=== PATIENT | male | born 1950 | race Caucasian/White ===

== ENCOUNTER 2016-11-09 12:37 | Inpatient (IN) | payer OTHER ==
[~2016-11-09] VITALS: Ht 167.6 cm; Wt 75.7 kg
[~2016-11-09 12:37] MED LIST: BACO TOP; COZ50 PO; DIT5 PO; FENOGLIDE40 MG PO; GLU850 PO; HIBICLENS118 ML TOP; HUMALOG100 U/ML SC; HUMI SQ; LEVEMIR100 U/M1 SC; NEU100 PO; NOR5 PO; OMEPRAZOLE DR20 M1 PO; ROBITUSSIN COU118 ML PO; ZOCOR40 MG PO; [UNRECOGNIZED DRUG - CODE] PO
[2016-11-09 15:47] LABS: BASOPHIL % 0.6 % (0-2); PLATELET COUNT 333 x10^3mcL (130-400); RED CELL DISTRIBUTION WIDTH 13.1 % (11.5-14.5)
[2016-11-09 16:27] LABS: CARBON DIOXIDE 22.8 mmol/L (21-32); POTASSIUM SERUM 4.7 mmol/L (3.5-5.1)
[2016-11-09 16:31] LABS: BILIRUBIN TOTAL 0.2 mg/dL (0.20-1.00); TOTAL PROTEIN, SERUM 7.2 g/dL (6.4-8.2)
[2016-11-09 16:37] LABS: ALBUMIN 2.5 g/dL (3.4-5.0)
[2016-11-09 18:06] LABS: FREE T4 1.04 ng/dL (0.76-1.46); FREE THYROXINE INDEX 1.8 ug/dL (1.4-4.5); T4(THYROXINE) 5.4 ug/dL (4.7-13.3)
[2016-11-09 18:12] VITALS: BP 190/119
[2016-11-09 18:37] LABS: CHOLESTEROL/HDL RATIO 3.7; T3 TOTAL 1.07 ng/mL
[2016-11-09 22:02] VITALS: BP 105/115; BP 205/115
[2016-11-09 23:17] LABS: UA SPECIFIC GRAVITY 1.015 (1.005-1.035); microscopic required? YES; urine erythrocyte 1+ (NEGATIVE)
[2016-11-09 23:46] LABS: AMPHETAMINE QUAL UR NONE DETECTED (NEG <=1000)
[2016-11-10] VITALS (7 sets, daily range): BP systolic 116–175; BP diastolic 63–105; Ht 167.6 cm; Wt 75.7 kg
[2016-11-10 06:31] LABS: BASOPHIL % 1.6 % (0-2); PLATELET COUNT 297 x10^3mcL (130-400); RED CELL DISTRIBUTION WIDTH 12.6 % (11.5-14.5)
[2016-11-10 06:47] LABS: CALCIUM 7.7 mg/dL (8.5-10.1); CARBON DIOXIDE 24.6 mmol/L (21-32); CREATININE SERUM 1.9 mg/dL (0.7-1.3); MAGNESIUM 1.8 mg/dL (1.8-2.4); PHOSPHOROUS 4.2 mg/dL (2.5-4.9); POTASSIUM SERUM 4.2 mmol/L (3.5-5.1)
[2016-11-11 06:05] LABS: BASOPHIL % 0.7 % (0-2); PLATELET COUNT 268 x10^3mcL (130-400); RED CELL DISTRIBUTION WIDTH 13.5 % (11.5-14.5)
[2016-11-11 06:30] VITALS: BP 149/88
[2016-11-11 06:32] LABS: CALCIUM 7.2 mg/dL (8.5-10.1); CARBON DIOXIDE 22.9 mmol/L (21-32); MAGNESIUM 1.8 mg/dL (1.8-2.4); PHOSPHOROUS 4.2 mg/dL (2.5-4.9); POTASSIUM SERUM 4.7 mmol/L (3.5-5.1)
[2016-11-11 09:20] VITALS: BP 147/75
[2016-11-11] MEDS ORDERED: CLINDAMYCIN HC300 MG PO (09:52)
[2016-11-11] MEDS ORDERED: LAC PO (09:52)
[2016-11-11] MEDS ORDERED: ASPIR 8181 MG PO (09:53)
[2016-11-11] MEDS ORDERED: ISO10 PO (09:53)
[2016-11-11] MEDS ORDERED: HIBICLENS118 ML TOP (12:14)
[2016-11-11] MEDS ORDERED: BACTROBAN21 (12:14)
[2016-11-11 12:27] VITALS: BP 147/75
== END 2016-11-11 15:03 | disposition home or self-care (01) | DRG 602 ==
LOC: ED 12:37 → DU 16:45 → MU 16:45 → DU 18:00 → MU 11-10 10:02
PROVIDERS: Emergency Medicine; ADMIT Family Medicine
DX: L03.115 Cellulitis of right lower limb (principal); N17.0 Acute kidney failure with tubular necrosis; I50.43 Acute on chronic combined systolic (congestive) and diastolic (congestive) heart failure; E43 Unspecified severe protein-calorie malnutrition; S80.211A Abrasion, right knee, initial encounter; B95.62 Methicillin resistant Staphylococcus aureus infection as the cause of diseases classified elsewhere; I11.0 Hypertensive heart disease with heart failure; M17.11 Unilateral primary osteoarthritis, right knee; E11.65 Type 2 diabetes mellitus with hyperglycemia; E11.51 Type 2 diabetes mellitus with diabetic peripheral angiopathy without gangrene; N40.0 Benign prostatic hyperplasia without lower urinary tract symptoms; E78.5 Hyperlipidemia, unspecified; Z89.511 Acquired absence of right leg below knee; Z79.4 Long term (current) use of insulin; Z79.84 Long term (current) use of oral hypoglycemic drugs; Z68.24 Body mass index [BMI] 24.0-24.9, adult; Z22.322 Carrier or suspected carrier of Methicillin resistant Staphylococcus aureus; Y79.2 Prosthetic and other implants, materials and accessory orthopedic devices associated with adverse incidents; Y92.009 Unspecified place in unspecified non-institutional (private) residence as the place of occurrence of the external cause
CPT/HCPCS: 80307; 82962; 83880; 84439; J0360; J1815; J1956; J3490; J7030; Q0092

== ENCOUNTER 2016-11-16 01:31 | Emergency (ER) | payer OTHER ==
[~2016-11-16 01:31] MED LIST changes: +ASPIR 8181 MG PO; +BACTROBAN21; +CLINDAMYCIN HC300 MG PO; +ISO10 PO; +LAC PO
[2016-11-16 02:24] LABS: BASOPHIL % 0.8 % (0-2); PLATELET COUNT 293 x10^3mcL (130-400); RED CELL DISTRIBUTION WIDTH 13.5 % (11.5-14.5)
[2016-11-16 02:27] LABS: CALCIUM 7.3 mg/dL (8.5-10.1); CARBON DIOXIDE 27.4 mmol/L (21-32); CREATININE SERUM 2.1 mg/dL (0.7-1.3); POTASSIUM SERUM 3.8 mmol/L (3.5-5.1)
[2016-11-16 03:33] VITALS: BP 169/98
== END 2016-11-16 03:33 | disposition home or self-care (01) ==
LOC: ED 01:31
PROVIDERS: Emergency Medicine
DX: R07.89 Other chest pain (principal); E11.9 Type 2 diabetes mellitus without complications
CPT/HCPCS: J1885; J2270; Q0092

== ENCOUNTER 2017-05-18 16:55 | Inpatient (IN) | payer OTHER ==
[~2017-05-18] VITALS: Ht 167.6 cm; Wt 75.9 kg
--- NOTE | 2017-05-18 17:27 | NUR ---
TO TREATMENT AREA
--- NOTE | 2017-05-18 17:37 | NUR ---
DR LUTHER AT BESIDE, PT C/O LEFT FOOT PAIN X4 DAYS. REDNESS NOTED ON THE ;EFT LEG. AWAITING DR AHN
[2017-05-18 18:21] LABS: PLATELET COUNT 302 x10^3mcL (130-400); RED CELL DISTRIBUTION WIDTH 13.2 % (11.5-14.5)
--- NOTE | 2017-05-18 18:40 | NUR ---
MEDICATED PT ORDERED, SEE MAR. WILL MONITOR FOR ADVERSE REACTIONS
[2017-05-18 18:45] LABS: CALCIUM 7.8 mg/dL (8.5-10.1); CREATININE SERUM 3.3 mg/dL (0.7-1.3)
[2017-05-18 18:52] LABS: BILIRUBIN TOTAL 0.35 mg/dL (0.20-1.00); TOTAL PROTEIN, SERUM 7.1 g/dL (6.4-8.2)
[2017-05-18 18:55] LABS: CK-MB 2.8 ng/mL (0-3.6)
[2017-05-18 19:04] LABS: BAND NEUTROPHIL 0 % (0-10); BASOPHIL 0 % (0-2); MONOCYTE 5 % (0-7); SEGMENTED NEUTROPHILS 89 % (37-75)
[2017-05-18 19:05] LABS: PLATELET MORPHOLOGY PLATELETS NORMAL; rbc morphology (normal/abnorm) NORMAL (NORMAL)
--- NOTE | 2017-05-18 19:05 | NUR ---
REPORT GIVEN TO TIFFANIE, ENDORSED PTCARE ACCORDINGLY
--- NOTE | 2017-05-18 19:07 | NUR ---
PT IN EYAL AAO4, RESP E/U, STS NO PAIN AT THIS TIME.
--- NOTE | 2017-05-18 19:20 | NUR ---
PT IN BED CONVERSING ON CELL PHONE. PT GIVEN URINAL TO PROVIDE SPECIMEN
--- NOTE | 2017-05-18 19:48 | NUR ---
UNABLE TO OBTAIN MED REC
--- NOTE | 2017-05-18 19:52 | NUR ---
CALLED TO GIVE HIRA REPORT, WAS TOLD SHE WILL CALL BACK
[2017-05-18 19:59] LABS: microscopic required? YES; urine erythrocyte 1+ (NEGATIVE)
[2017-05-18] MEDS ORDERED: LANTI SQ (20:00)
--- NOTE | 2017-05-18 20:06 | NUR ---
REPORT GIVEN TO HIRA TO ASSUME CARE OF PT
--- NOTE | 2017-05-18 21:00 | NUR ---
RECEIVED PT FROM ED VIA ROSIO, CAME IN DUE TO LEFT LEG SWELLING AND PAIN. AAOX4. NO SOB NOTED. DENIES CHEST PAIN/PRESSURE, NSR ON THE MONITOR. DENIES ABDOMINAL DISCOMFORT. W/ REDNESS, DARK DISCOLORATION AND SWELLING ON LLE. RLE PROSTHESIS AT BEDSIDE. RECEIVED PT FROM ED W/ VANCOMYCIN ONGOING. SIDE RAILS UPX2. CALL LIGHT ON REACH. ENDORSED
[2017-05-18 21:10] VITALS: BP 118/73
[2017-05-18 21:13] LABS: CHOLESTEROL/HDL RATIO 4.8; MAGNESIUM 1.5 mg/dL (1.8-2.4); PHOSPHOROUS 3.2 mg/dL (2.5-4.9)
[2017-05-18 21:13] LABS: AMPHETAMINE QUAL UR NONE DETECTED (NEG <=1000)
[2017-05-18 21:15] VITALS: Ht 167.6 cm; Wt 75.9 kg
[2017-05-18 21:21] LABS: FREE T4 1.24 ng/dL (0.76-1.46); FREE THYROXINE INDEX 2.4 ug/dL (1.4-4.5); T4(THYROXINE) 6.3 ug/dL (4.7-13.3)
[2017-05-18 21:28] LABS: T3 TOTAL 0.65 ng/mL
--- NOTE | 2017-05-18 22:17 | NUR ---
ULTRASOUND ART/VENOUS TO BLE DONE AT BEDSIDE. MNWH=[id number]. KEPT NPO.
--- NOTE | 2017-05-18 22:56 | NUR ---
RESTING WITH EYES CLOSE. LEVAQUIN IV INFUSING AT THIS TIME, NO ADVERSE REACTION NOTED. DENIES PAIN. CALL LIGHT REINSTRUCTED AND PLACED WITHIN EASY REACH. SIDERAILS UP X2. CONTACT ISOLATION MAINTAINED.
--- NOTE | 2017-05-19 02:00 | NUR ---
VOIDED VIA URINAL NOTED YELLOW URINE OUTPUT.
--- NOTE | 2017-05-19 02:27 | NUR ---
STS HAVING PAIN TO RIGHT LEG STUMP AND LLE CELLULITIS AREA 4/10 ON PAIN SCALE. NORCO 1 TAB PO GIVEN. WILL CONTINUE TO MONITOR.
[2017-05-19 06:07] VITALS: BP 149/81
--- NOTE | 2017-05-19 06:48 | NUR ---
NO ANY DISTRESS THROUGHOUT SHIFT. VSS. NORCO WAS GIVEN X1 FOR BLE PAIN WITH GOOD RELIEF. ALL DUE MEDS GIVEN. KEPT NPO. IVF D5NS CONTINUED AT 120ML/HR.
--- NOTE | 2017-05-19 08:00 | NUR ---
AWAKE AND ALERT. SWEDISH SPEAKING. USE OF [employer] PHONE FOR COMMUNICATION. TEMP 98.8. TELE #3 SINUS RHYTHM WITH PAC. RESP 18 EVEN. BREATH SOUNDS CLEAR. PULSE OX 96% RA. ABD SOFT, BOWEL TONES PRESENT. VOIDING QS. RBKA. LEFT LEG NOTED SWOLLEN LOWER LEG, ANKLE AND FOOT. PULSES WEAK. DENIES PAIN. AREA CIRCLED TO BOTTOM OF FOOT. CENTER OF BOTTOM OF FOOT WHITISH IN COLOR. NO DRAINAGE. NAIL BEDS LIAM WELL. IV PATENT RAC. NPO THIS AM FOR POSSIBLE PROCEDURE. CONTACT ISOLATION MAINTAINED. CALL LIGHT IN REACH.
--- NOTE | 2017-05-19 08:10 | NUR ---
DR CURTIS HERE FOR I&D LEFT FOOT. CONSENT SIGNED BY WITH USE OF [employer] GAS OPERATOR PHONE. PT VERBALIZED UNDERSTANDING. REMAINS NPO. UNABLE TO DO PROCEDURE AT BEDSIDE. PLAN TO TAKE PT TO OR TODAY. PT VERBALIZED UNDERSTANDING.
--- NOTE | 2017-05-19 08:50 | NUR ---
DR ANTHONY AND MEDICAL TEAM IN ON ROUNDS. CHARGE NURSE AND PRIMARY NURSE PRESENT. REVIEWED PLAN OF CARE. DR CURTIS AT BEDSIDE AT THIS TIME.
[2017-05-19 09:30] VITALS: BP 165/97
[2017-05-19 13:26] VITALS: BP 177/80
--- NOTE | 2017-05-19 13:30 | NUR ---
CONSENT ON CHART. PT VERBALIZED UNDERSTANDING OF PROCEDURE TO BE DONE. LEFT LEG MARKED WITH YES BY PT. KADEEM BATH COMPLETED. REPORT GIVEN TO OR NURSE RE:HTN. 165/97. AXL=782. PULSE OX 98%. TEMP 98.8. NO DISTRESS. DENIES HEADACHE OR DIZZINESS. OK TO SEND PT TO OR AT THIS TIME PER OR NURSE AND ANESTHESIOLOGIST WILL EVAL BP DOWN HERE. PAGE TO DR ELLISON. PT TAKES PO MEDS AT HOME. ARMBAND IDENTIFIED. PT TAKEN DOWN TO OR AT THIS TIME VIA BED.
--- NOTE | 2017-05-19 16:04 | NUR ---
P.T. NOTES RECEIVED P.T. EVAL, Pt UNAVAILABLE AT THIS TIME DUE TO HOSPITAL PROCEDURE, FOLLOW UP TOMORROW; HOLD P.T. EVAL TODAY. PVE
[2017-05-19 16:05] VITALS: BP 187/102
--- NOTE | 2017-05-19 16:05 | NUR ---
PT RETURNED TO ROOM VIA BED. AWAKE BUT DROWSY. C/O ALOT OF PHELGM, COUGHING UP CLEAR WHITE COLOR PHELGM. C/O MILD NAUSEA. RE=595/102. GVI=730. HR=87. TEMP 97.9. PULS EOX 92% ON 2L NC. DRESSING INTACT WITH SMALL BETADINE STAIN TO LEFT HEEL OF DRESSING. ELEVATED ON PILLOW. ABLE TO MOVE TOES. DENIES PAIN. IVF RESUMED. MG RIDER IN PROGRESS TO COMPLETE DOSE. CALL LIGHT IN REACH. PAGE TO DR ELLISON. WILL CONTINUE TO MONITOR.
--- NOTE | 2017-05-19 16:25 | NUR ---
PAGE TO DR ELLISON. PT REMAINS ALERT BUT DROWSY. FOLLOWS COMMANDS. ABLE TO SQUEEZE HANDS WITH MODERATE STRENGTH, EQUAL.
--- NOTE | 2017-05-19 16:40 | NUR ---
MED WITH NITRO 0.4MG SL ORDERED FOR HTN. MED ALSO WITH ZOFRAN 4MG IVP ORDERED FOR NAUSEA.
[2017-05-19 16:50] VITALS: BP 130/75
--- NOTE | 2017-05-19 16:50 | NUR ---
HR=82. BP DOWN TO 130/75. MAP=87. REPORTS "FEELS A LITTLE BETTER." YNM=655. NO RISS COVERAGE GIVEN AT THIS TIME DUE TO NPO STATUS. WILL CONTINUE TO MONITOR.
--- NOTE | 2017-05-19 17:15 | NUR ---
DR ELLISON HERE. UPDATED WITH PT STATUS, BP ISSUE AND CURRENT BP READING. NO CHANGE IN ORDERS AT THIS TIME.
--- NOTE | 2017-05-19 17:22 | NUR ---
UPDATED DR ELLISON ON PTS HOME BP MEDS. WILL REVIEW.
--- NOTE | 2017-05-19 18:25 | NUR ---
C/O TENDERNESS AT RAC IV SITE. DC CATH TIP INTACT. RESTART #22 ANGIO BY APOLINAR MAC CHARGE NURSE. IVF RESUMED. PT TOLERATED DINNER MEAL WELL. REPORTS "STOMACH BETTER."
--- NOTE | 2017-05-19 19:30 | NUR ---
PT A/O X4, ITALIAN SPEAKING. TELE #3, NSR, DENIES CHEST PAIN. PULSES PALPABLE, MINOR SWELLING TO LLE NOTED. LUNG SOUNDS CTA, BREATHING ON RA, PT ADMITS TO NONPRODUCTIVE COUGH. ABD SOFT AND NONDISTENDED, BOWEL SOUNDS ACTIVE, DENIES N/V. BSC AGT BEDSIDE, NO BM AT THIS TIME.PT VOIDS USING URINAL. GENERALIZED WEAKNESS, WEAKNESS TO LLE. PT HAS RBKA, RLE PROSTHESIS AT BEDSIDE. REDNESS AND DARK BROWN DISCOLORATION TO LLE; DRESSING IN PLACE TO LLE, NO ACTIVE BLEEDING OBSERVED. PT DENIES PAIN AT THIS TIME. IVF INFUSING WELL TO RIGHT WRIST, D5 NS @ 120 ML/HR. BED IN LOWEST SETTING, SIDE RAILS UP X2, BED ALARM ON, CALL LIGHT WITHIN REACH. WILL CONTINUE TO MONITOR.
[2017-05-19 22:55] VITALS: BP 168/83
[2017-05-20] VITALS (7 sets, daily range): BP systolic 130–169; BP diastolic 85–95
--- NOTE | 2017-05-20 01:17 | NUR ---
PT COMPLAINING OF COUGH. ADMINISTERED PHENERGAN/CODEINE ORDERED. WILL MONITOR FOR RELIEF.
--- NOTE | 2017-05-20 06:08 | NUR ---
PT SLEPT AT INTERVALS THROUGHOUT THE NIGHT. BREATHING IS EVEN AND UNLABORED, NO DISTRESS NOTED. PT DENIES PAIN AT THIS TIME. DRESSING TO LLE REMAINS IN PLACE WITH NO ACTIVE BLEEDING OBSERVED. BED IN LOWEST SETTING, CALL LIGHT WITHIN REACH. ALL NEEDS MET. WILL ENDORSE CARE TO AM NURSE.
[2017-05-20 06:16] LABS: BASOPHIL % 0.2 % (0-2); PLATELET COUNT 250 x10^3mcL (130-400); RED CELL DISTRIBUTION WIDTH 13.3 % (11.5-14.5)
[2017-05-20 06:30] LABS: CALCIUM 7.8 mg/dL (8.5-10.1); CREATININE SERUM 3.1 mg/dL (0.7-1.3); MAGNESIUM 2.1 mg/dL (1.8-2.4); POTASSIUM SERUM 4.6 mmol/L (3.5-5.1)
--- NOTE | 2017-05-20 07:59 | NUR ---
PT AWAKE AND ALERT. TEMP 99. TELE #3 SINUS RHYTHM WITH PAC. RESP 18 EVEN. BREATH SOUNDS DIMINISHED. NO COUGH OR SOB THIS AM. PULSE OX 100% RA. USES INCENTIVE SPIROMETER WITH ENCOURAGEMENT. ABD SOFT, BOWEL TONES PRESENT. VOIDING QS. RBKA NOTED. LEFT LEG ELEVATED ON PILLOW. DRESSING INTACT WITH SMALL AMOUNT OF BETADINE STAIN TO HEEL REGION. DENIES PAIN. IV PATENT RFA INFUSING D5NS 120CC/HR. SIDE RAILS UP X2. CALL LIGHT IN REACH. CONTACT ISOLATION MAINTAINED.
--- NOTE | 2017-05-20 09:10 | NUR ---
DR HOLT AND MEDICAL TEAM IN ON ROUNDS. CHARGE NURSE AND PRIMARY NURSE PRESENT. DISCUSSED IN MAURITANIAN PLAN OF CARE. PT DENIES PAIN OR NAUSEA. DR MUNROE AT BEDSIDE. UPDATED WITH PTS AL=043/88 AT THIS TIME. PT REPORTS DOES NOT TAKE ANY BP MEDS RIGHT NOW AT HOME. MEDS REVIEWED WITH MD. WILL ADJUST MEDS.
--- NOTE | 2017-05-20 11:50 | NUR ---
PHYSICAL THERAPY IN TO SEE PT. POST OP SHOE TO LEFT FOOT. ABLE TO PIVOT TRANSFER TO CHAIR WITHOUT PUTTING ON RBKA PROSTHESIS. CONTINUES TO DENY PAIN. UP X 10 MIN. RETURNED TO BED. LEFT LEG ELEVATED ON PILLOW. CIRCULATION STATUS UNCHANGED FROM AM ASSESSMENT. IV PATENT. CALL LIGHT IN REACH. CONTACT ISOLATION MAINTAINED.
--- NOTE | 2017-05-20 16:30 | NUR ---
SNM=079. TO MED WITH RISS 3 UNITS SQ COVERAGE. ABD ROUNDED BUT SOFT, NO BM SINCE ADMISSION. PAGE TO MD. TO ORDER LAXITIVE. CALL LIGHT IN REACH.
--- NOTE | 2017-05-20 18:07 | NUR ---
PT RESTING. NO CHANGE IN ASSESSMENT. CONTACT ISOLATION MAINTAINED. CALL LIGHT IN REACH. WILL CONTINUE TO MONITOR.
--- NOTE | 2017-05-20 19:30 | NUR ---
PT A/O X4, ENGLISH SPEAKING. TELE #3, SINUS ARRHYTHMIA AT 86, DENIES CHEST PAIN. PULSES PALPABLE, SWELLING TO LLE NOTED. LUNG SOUNDS CTA, BREATHING ON RA, DENIES SOB, PT HAS PRODUCTIVE COUGH. ABD SOFT AND ROUND, BOWEL TONES ACTIVE, PT REPORTS PASSING GAS, BUT NO BM YET. VOIDS USING URINAL OR BSC. GENERALIZED WEAKNESS AND WEAKNESS TO LLE. RBKA, RLE PROSTHESIS AT BEDSIDE. REDNESS AND BROWN DISCOLORATION TO LLE, GAUZE WRAP IN PLACE, NO BLEEDING OBSERVED. PT DENIES PAIN AT THIS TIME. IVF INFUSING WELL TO RIGHT WRIST, NS @ 100 ML/HR. BED IN LOWEST SETTING, SIDE RAILS UP X2, CALL LIGHT WITHIN REACH. WILL CONTINUE TO MONITOR.
[2017-05-21] VITALS (7 sets, daily range): BP systolic 145–188; BP diastolic 67–98
--- NOTE | 2017-05-21 00:21 | NUR ---
PT IS SLEEPING, BUT EASILY AROUSABLE. NO RESP DISTRESS OR PAIN NOTED. LLE ELEVATED ON A PILLOW. IVF INFUSING WELL TO RIGHT WRIST. CALL LIGHT WITHIN REACH. WILL CONTINUE TO MONITOR.
[2017-05-21 06:18] LABS: BASOPHIL % 0.2 % (0-2); PLATELET COUNT 279 x10^3mcL (130-400); RED CELL DISTRIBUTION WIDTH 13.4 % (11.5-14.5)
[2017-05-21 06:50] LABS: CALCIUM 7.7 mg/dL (8.5-10.1); CARBON DIOXIDE 17.8 mmol/L (21-32); MAGNESIUM 1.7 mg/dL (1.8-2.4); PHOSPHOROUS 3.5 mg/dL (2.5-4.9)
--- NOTE | 2017-05-21 07:15 | NUR ---
PT SEEN REST ON BED. PT NO COMPLAIN OF PAIN AT THIS TIME. PT BREATHING ON RA, EVEN, UNLABORED. PT'S PROSTHESIS FOR RLE AT BED SIDE. IV SITE PATENT, INTACT. IVF INFUSING WELL.
--- NOTE | 2017-05-21 07:24 | NUR ---
PT SLEPT WELL THROUGHOUT THE NIGHT. NO SIGNS OF RESP DISTRESS. PT DENIES PAIN AT THIS TIME. ALL NEEDS MET. IVF INFUSING WELL. WILL ENDORSE CARE TO AM NURSE.
--- NOTE | 2017-05-21 12:47 | NUR ---
ASSIST PT TO AMBULATE TO BATHROOM. PT WALKED WITH UNSTEADY GAIT. PT HAD BM X 2 THIS MORNING.
--- NOTE | 2017-05-21 13:45 | NUR ---
PODIATRIEST PACKED AND CHANGED DRESSING. PIC TAKEN.
--- NOTE | 2017-05-21 18:39 | NUR ---
[employer] LABORER REPORT PT'S BP 188/98, HR 84. NITRO SL GIVEN PER PRN ORDER. WILL RECHECK PT'S BP. PT REST ON BED, NO COMPLAIN OF PAIN. PT HAD BM X 2. DRESSING CHANGED BY PODIATRIEST, KAMERON. LLE ELEVATED WITH PILLOW. PT BREATHING ON RA, EVEN, UNLABORED. IV SITE PATENT, INTACT. IVF INFUSING WELL.
--- NOTE | 2017-05-21 19:35 | NUR ---
RECEIVED PATIENT FROM DAY SHIFT NURSE, PATIENT ALERT AND ORIENTED, TELE # 3 SR, IV ACCESS TO R WRIST WNL, LUNG SOUNDS CLEAR, BOWEL SOUNDS ACTIVE, DRESSING TO LLE CDI, ORIENTED PATIENT TO ROOM AND SURROUNDINGS, BED IN LOW POSITION, BED RAILS UP X 2, CALL LIGHT WITHIN REACH, WILL CONTINUE TO MONITOR
[2017-05-22 05:19] VITALS: BP 90/57
[2017-05-22 06:11] LABS: BASOPHIL % 0.3 % (0-2); PLATELET COUNT 288 x10^3mcL (130-400); RED CELL DISTRIBUTION WIDTH 12.9 % (11.5-14.5)
--- NOTE | 2017-05-22 06:38 | NUR ---
PATIENT RESTING IN BED, IN NO ACUTE DISTRESS, NO C/O PAIN AT THIS TIME, BED IN LOW POSITION, BED RAILS UP X 2, CALL LIGHT WITHIN REACH, WILL ENDORSE CARE TO ONCOMING NURSE
[2017-05-22 06:41] LABS: CALCIUM 7.9 mg/dL (8.5-10.1); CREATININE SERUM 2.9 mg/dL (0.7-1.3); MAGNESIUM 1.7 mg/dL (1.8-2.4); PHOSPHOROUS 3.7 mg/dL (2.5-4.9); POTASSIUM SERUM 5.1 mmol/L (3.5-5.1)
--- NOTE | 2017-05-22 07:10 | NUR ---
RECEIVED PATIENT AWAKE/ALERT IN BED NO DISTRESS NOTED, DENIES PAIN. IV INTACT AND INFUSING WELL TO RW; POC EXPLAINED. CONT TO MONITOR.
--- NOTE | 2017-05-22 08:55 | NUR ---
PATIENT SIT UP IN BED NO COMPLAINT. DENIES PAIN. ALL DUE MEDS GIVEN. CONT TO MONITOR.
--- NOTE | 2017-05-22 09:24 | NUR ---
DR. ROSALES ROUND WITH MEDICAL TEAM DISCUSS POC AND PLAN TX PATIENT TO REHAB FOR PT AND WOUND CARE.
[2017-05-22 09:29] VITALS: BP 164/85
--- NOTE | 2017-05-22 10:25 | NUR ---
PATIENT SAT UP IN BED NO COMPLAINT; COLT STUDENT NURSE AND INSTRUCTOR GIVEN MEDS AT THIS TIME. NEEDS ANTICIPATED.
--- NOTE | 2017-05-22 11:41 | NUR ---
PATIENT UP IN CHAIR AT THIS TIME, PER PT PATIENT ABLE TO WALK TO BATHROOM DOOR WITH MINIMUM BEAR WT ON LEFT HEEL; TOLERATED WELL NO C/O PAIN. BS 102 NO COVERAGE NEEDED.
[2017-05-22 13:37] VITALS: BP 163/84
--- NOTE | 2017-05-22 14:30 | NUR ---
DR. ROBERT CALL BACK INFORM PATIENT C/O BLOATED AND PAIN TO ABDOMEN; ASSIST PATIENT TO BSC AT THIS TIME.
--- NOTE | 2017-05-22 14:55 | NUR ---
AFTER PATIENT HAD BM AND PASSING FLATUS; PATIENT STATE FEEL BETTER AND DOESN'T WANT ANY MEDICINE FOR BLOATED. PATIENT RESTING IN BED COMFORTABLE.
[2017-05-22] MEDS ORDERED: CLE6PM IV (15:03)
--- NOTE | 2017-05-22 15:41 | NUR ---
PATIENT RESTING IN BED NO COMPLAINT, LEFT FOOT DRESSING CHANGE BY SURU RN; PER DR. ROBERT LEAVE THE PACKING IN JUST CHANGED GAUZES DRESSING. PATIENT TOLERATED WELL.
--- NOTE | 2017-05-22 15:42 | NUR ---
PHYSICAL THERAPY DAILY NOTES CO-SIGN All documentation done by the Bonding Molder for 05/22/17 has been reviewed. I agree with the documentation. Reviewed/Co-Signed by: Doris Martin PT Documentation Done by: MADDY WARREN ASSOCIATE PASTOR PT SHOWING STEADY GAINS WITH [facility] WITH EMPHASIS ON SAFE TRANSFERS. TO PROGRESS PER PLAN OF CARE
[2017-05-22 16:16] VITALS: BP 163/84
--- NOTE | 2017-05-22 16:44 | NUR ---
PATIENT RESTING IN BED NO DISTRESS NOTED, DENIES PAIN; BP 174/90, MAP 118. NEW IV TO RW#22 G CONT MG-RIDER INFUSING. DR. PACE WAS INFORM BP 174/90; TELE REMOVED; PATIENT TRANSFER AT 1730.
[2017-05-22] MEDS ORDERED: NOR5 PO (16:45)
[2017-05-22] MEDS ORDERED: LISINOPRIL10 MG PO (16:47)
--- NOTE | 2017-05-22 17:04 | NUR ---
CALL [facility] GIVE REPORT TO BILL MAC; PATIENT IS ELECTRONIC IMAGER AT 1730 AND GOING WITH IV TO RW FOR IV ABX.
--- NOTE | 2017-05-22 17:27 | NUR ---
PATIENT ALREADY DRESS AND IV HEPLOCK; DISCHARGE INSTRUCTION GIVEN; HOME MEDS EXPLAINED. PATIENT VERBALIZE UNDERSTAND F/U WITH DR. THOMPSON FROM SNF, OFFERED FLU VACCINE PATIENT STATE "DON'T FEEL GOOD" TO RECEIVED WILL F/U WITH PCP. TRANSFER TO WHEELCHAIR BY KAILA. ALL BELONGINGS WITH PATIENT.
== END 2017-05-22 17:27 | DRG 623 ==
LOC: ED 16:55 → DU 19:27
PROVIDERS: Emergency Medicine; Family Medicine Sports Medicine; Podiatrist Foot & Ankle Surgery; ADMIT Family Medicine
PROC: 0HBNXZZ Excision of Left Foot Skin, External Approach (ICD-10-PCS; principal; 2017-05-19 13:00)
DX: E11.621 Type 2 diabetes mellitus with foot ulcer (principal); L97.429 Non-pressure chronic ulcer of left heel and midfoot with unspecified severity; L02.612 Cutaneous abscess of left foot; E44.0 Moderate protein-calorie malnutrition; N17.0 Acute kidney failure with tubular necrosis; E11.65 Type 2 diabetes mellitus with hyperglycemia; B95.62 Methicillin resistant Staphylococcus aureus infection as the cause of diseases classified elsewhere; E11.42 Type 2 diabetes mellitus with diabetic polyneuropathy; I12.9 Hypertensive chronic kidney disease with stage 1 through stage 4 chronic kidney disease, or unspecified chronic kidney disease; E11.22 Type 2 diabetes mellitus with diabetic chronic kidney disease; N18.4 Chronic kidney disease, stage 4 (severe); E11.51 Type 2 diabetes mellitus with diabetic peripheral angiopathy without gangrene; D64.9 Anemia, unspecified; E66.3 Overweight; Z68.27 Body mass index [BMI] 27.0-27.9, adult; Z89.511 Acquired absence of right leg below knee; Z79.4 Long term (current) use of insulin
CPT/HCPCS: 36600; 82962; 83880; 84439; 94150; 97110-GP; 97530-GP; J1956; J2250; J2270; J2405; J2704; J3010; J3370; J3475; J3490; J7030; J7042; Q0092; Q0163

== ENCOUNTER 2017-06-12 05:00 | Observation (INO) | payer OTHER ==
[~2017-06-12] VITALS: Ht 167.6 cm; Wt 73.0 kg
[~2017-06-12 05:00] MED LIST changes: +CLE6PM IV; +LANTI SQ; +LISINOPRIL10 MG PO
[2017-06-12 06:04] LABS: BASOPHIL % 0.4 % (0-2); PLATELET COUNT 249 x10^3mcL (130-400); RED CELL DISTRIBUTION WIDTH 13.8 % (11.5-14.5)
[2017-06-12 06:12] LABS: CALCIUM 7.8 mg/dL (8.5-10.1); CARBON DIOXIDE 24.4 mmol/L (21-32); CREATININE SERUM 3.2 mg/dL (0.7-1.3)
[2017-06-12 06:16] LABS: ALBUMIN 2.8 g/dL (3.4-5.0); BILIRUBIN TOTAL 0.29 mg/dL (0.20-1.00); TOTAL PROTEIN, SERUM 6.8 g/dL (6.4-8.2)
[2017-06-12 10:45] LABS: microscopic required? YES; urine erythrocyte 1+ (NEGATIVE)
[2017-06-12 11:18] VITALS: BP 168/91
[2017-06-12 11:22] LABS: MAGNESIUM 2.2 mg/dL (1.8-2.4); PHOSPHOROUS 3.4 mg/dL (2.5-4.9)
[2017-06-12 11:25] LABS: CHOLESTEROL/HDL RATIO 2.2
[2017-06-12 11:58] VITALS: Ht 167.6 cm; Wt 73.0 kg
[2017-06-12 12:11] LABS: FREE T4 1.16 ng/dL (0.76-1.46); FREE THYROXINE INDEX 2.9 ug/dL (1.4-4.5); T4(THYROXINE) 8.5 ug/dL (4.7-13.3)
[2017-06-12 12:18] LABS: T3 TOTAL 1.16 ng/mL
[2017-06-12] MEDS ORDERED: PHARMASSURE VI500 MG PO (13:34)
[2017-06-12] MEDS ORDERED: CIPRO500 MG PO (13:37)
[2017-06-12] MEDS ORDERED: LAC PO ×2 (13:38→17:18)
[2017-06-12] MEDS ORDERED: CLONIDINE0.2 M1 PO (13:44)
[2017-06-12] MEDS ORDERED: MULTI-VITAMIN1 EACH PO (13:45)
[2017-06-12 13:46] VITALS: BP 163/77
[2017-06-12 16:14] VITALS: BP 167/85
[2017-06-12 17:00] VITALS: BP 145/82
[2017-06-12] MEDS ORDERED: ACETAMINOPHEN &1 TA1 PO (17:05)
[2017-06-12] MEDS ORDERED: TYLENOL325 M1 PO (17:18)
[2017-06-12] MEDS ORDERED: BAYER ASPIRIN R81 MG PO (17:19)
[2017-06-12] MEDS ORDERED: CIPROFLOXACIN500 MG PO (17:19)
[2017-06-12 22:25] VITALS: BP 163/84
[2017-06-13 06:18] LABS: BASOPHIL % 0.4 % (0-2); PLATELET COUNT 267 x10^3mcL (130-400); RED CELL DISTRIBUTION WIDTH 14.3 % (11.5-14.5)
[2017-06-13 06:26] VITALS: BP 139/85
[2017-06-13 06:32] LABS: CALCIUM 8.3 mg/dL (8.5-10.1); CARBON DIOXIDE 25.7 mmol/L (21-32); CREATININE SERUM 3.1 mg/dL (0.7-1.3); POTASSIUM SERUM 4.5 mmol/L (3.5-5.1)
[2017-06-13 09:34] VITALS: BP 183/96
[2017-06-13 11:52] VITALS: BP 153/89
[2017-06-13] MEDS ORDERED: ZES20 PO ×2 (12:33→13:48)
[2017-06-13 12:59] VITALS: BP 141/63
[2017-06-13 13:10] VITALS: BP 136/77
[2017-06-13 13:13] VITALS: BP 136/77
[2017-06-15] MEDS ORDERED: LAC PO (14:21)
[2017-06-15] MEDS ORDERED: CIPROFLOXACIN500 MG PO (14:21)
== END 2017-06-13 16:59 | DRG 264 ==
LOC: ED 05:00 → DU 09:38
PROVIDERS: Emergency Medicine; ADMIT Family Medicine
PROC: 0JBR0ZZ Excision of Left Foot Subcutaneous Tissue and Fascia, Open Approach (ICD-10-PCS; principal; 2017-06-12)
DX: I16.1 Hypertensive emergency (principal); N17.0 Acute kidney failure with tubular necrosis; N18.4 Chronic kidney disease, stage 4 (severe); E44.0 Moderate protein-calorie malnutrition; L97.429 Non-pressure chronic ulcer of left heel and midfoot with unspecified severity; E87.1 Hypo-osmolality and hyponatremia; I12.9 Hypertensive chronic kidney disease with stage 1 through stage 4 chronic kidney disease, or unspecified chronic kidney disease; E11.621 Type 2 diabetes mellitus with foot ulcer; E11.65 Type 2 diabetes mellitus with hyperglycemia; E11.40 Type 2 diabetes mellitus with diabetic neuropathy, unspecified; N40.0 Benign prostatic hyperplasia without lower urinary tract symptoms; K21.9 Gastro-esophageal reflux disease without esophagitis; E03.9 Hypothyroidism, unspecified; E78.5 Hyperlipidemia, unspecified; E66.3 Overweight; Z68.25 Body mass index [BMI] 25.0-25.9, adult; Z79.4 Long term (current) use of insulin; Z79.82 Long term (current) use of aspirin; Z89.511 Acquired absence of right leg below knee
CPT/HCPCS: 82962; 83880; 84439; G0378; J0360; J1815; J3490; J7030; Q0092

== ENCOUNTER 2017-07-22 22:47 | Emergency (ER) | payer OTHER ==
[~2017-07-22 22:47] MED LIST changes: +ACETAMINOPHEN &1 TA1 PO; +BAYER ASPIRIN R81 MG PO; +CIPRO500 MG PO; +CIPROFLOXACIN500 MG PO; +CLONIDINE0.2 M1 PO; +MULTI-VITAMIN1 EACH PO; +PHARMASSURE VI500 MG PO; +TYLENOL325 M1 PO; +ZES20 PO
[2017-07-22 23:53] LABS: CALCIUM 7.4 mg/dL (8.5-10.1); CREATININE SERUM 3.9 mg/dL (0.7-1.3); POTASSIUM SERUM 4.8 mmol/L (3.5-5.1)
[2017-07-22 23:57] LABS: BASOPHIL % 0.9 % (0-2); PLATELET COUNT 236 x10^3mcL (130-400)
[2017-07-22 23:58] LABS: BILIRUBIN TOTAL 0.3 mg/dL (0.20-1.00); TOTAL PROTEIN, SERUM 7.1 g/dL (6.4-8.2)
[2017-07-23 00:11] LABS: RED CELL DISTRIBUTION WIDTH 14.7 % (11.5-14.5)
[2017-07-23] MEDS ORDERED: HUMULIN N100 U/1 ML (01:16)
[2017-07-23] MEDS ORDERED: CLONIDINE HCL0.1 M1 (01:17)
[2017-07-23] MEDS ORDERED: CLONIDINE HCL0.1 M1 PO (01:17)
[2017-07-23] MEDS ORDERED: IBUPROFEN400 MG PO (01:18)
[2017-07-23] MEDS ORDERED: GOOD NEIGHBOR P44 ML (01:18)
[2017-07-23 03:03] VITALS: BP 177/116
[2017-07-23 03:15] LABS: MAGNESIUM 2.3 mg/dL (1.8-2.4); PHOSPHOROUS 3.7 mg/dL (2.5-4.9)
[2017-07-23 03:17] LABS: CHOLESTEROL/HDL RATIO 4.4
[2017-07-23 04:00] LABS: T3 TOTAL 1.07 ng/mL
[2017-07-23 04:03] LABS: FREE T4 0.98 ng/dL (0.76-1.46); FREE THYROXINE INDEX 1.9 ug/dL (1.4-4.5)
== END 2017-07-22 22:59 | disposition left against medical advice (07) ==
LOC: ED 22:47 → DU 07-23 00:52
PROVIDERS: Emergency Medicine; Family Medicine
DX: E11.621 Type 2 diabetes mellitus with foot ulcer (principal); E11.22 Type 2 diabetes mellitus with diabetic chronic kidney disease; I13.0 Hypertensive heart and chronic kidney disease with heart failure and stage 1 through stage 4 chronic kidney disease, or unspecified chronic kidney disease; N18.9 Chronic kidney disease, unspecified; I50.20 Unspecified systolic (congestive) heart failure
CPT/HCPCS: 83880; 84439; J1940; J3370; J3490; J7030; J7050; Q0092

== ENCOUNTER 2017-10-30 15:07 | Inpatient (IN) | payer OTHER ==
[~2017-10-30] VITALS: Ht 167.6 cm; Wt 85.4 kg
[~2017-10-30 15:07] MED LIST changes: +CLONIDINE HCL0.1 M1; +CLONIDINE HCL0.1 M1 PO; +GOOD NEIGHBOR P44 ML; +HUMULIN N100 U/1 ML; +IBUPROFEN400 MG PO
[2017-10-30 15:34] VITALS: Ht 167.6 cm; Wt 85.4 kg
[2017-10-30 17:32] LABS: BILIRUBIN TOTAL 0.2 mg/dL (0.20-1.00); CALCIUM 6.4 mg/dL (8.5-10.1); CARBON DIOXIDE 21.2 mmol/L (21-32); POTASSIUM SERUM 4.2 mmol/L (3.5-5.1); TOTAL PROTEIN, SERUM 6.4 g/dL (6.4-8.2)
[2017-10-30 17:34] LABS: BASOPHIL % 0.8 % (0-2); PLATELET COUNT 217 x10^3mcL (130-400)
[2017-10-30 17:35] LABS: RED CELL DISTRIBUTION WIDTH 15.9 % (11.5-14.5)
[2017-10-30 17:41] LABS: ALBUMIN 2.8 g/dL (3.4-5.0); CREATININE SERUM 4.4 mg/dL (0.7-1.3)
[2017-10-30 19:40] LABS: microscopic required? YES; urine erythrocyte 1+ (NEGATIVE)
[2017-10-30 20:09] LABS: AMPHETAMINE QUAL UR NONE DETECTED (NEG <=1000)
[2017-10-30 20:18] VITALS: BP 185/127
[2017-10-30 20:51] VITALS: BP 185/127
[2017-10-30 20:52] LABS: MAGNESIUM 1.6 mg/dL (1.8-2.4)
[2017-10-30 20:56] LABS: T3 TOTAL 0.72 ng/mL
[2017-10-30 21:01] LABS: CHOLESTEROL/HDL RATIO 2.8; T4(THYROXINE) 5.3 ug/dL (4.7-13.3)
[2017-10-30] MEDS ORDERED: LOSARTAN POTAS100 M1 PO (21:31)
[2017-10-30] MEDS ORDERED: LEVOTHYROXIN0.075 M2 PO (21:31)
[2017-10-30] MEDS ORDERED: CARVEDILOL12.5 M1 PO (21:32)
[2017-10-30] MEDS ORDERED: HYDRALAZINE HCL25 MG PO (21:33)
[2017-10-30 22:25] VITALS: BP 151/102
[2017-10-31] VITALS (7 sets, daily range): BP systolic 120–150; BP diastolic 83–99
[2017-10-31 06:21] LABS: BASOPHIL % 0.9 % (0-2); PLATELET COUNT 186 x10^3mcL (130-400)
[2017-10-31 06:31] LABS: CALCIUM 6.6 mg/dL (8.5-10.1); CARBON DIOXIDE 19.9 mmol/L (21-32); MAGNESIUM 2.2 mg/dL (1.8-2.4); PHOSPHOROUS 4.4 mg/dL (2.5-4.9)
[2017-10-31 07:01] LABS: CREATININE SERUM 4.5 mg/dL (0.7-1.3)
[2017-10-31 07:10] LABS: RED CELL DISTRIBUTION WIDTH 15.6 % (11.5-14.5)
[2017-11-01 05:29] VITALS: BP 133/88
[2017-11-01 06:22] LABS: BASOPHIL % 0.7 % (0-2); PLATELET COUNT 190 x10^3mcL (130-400)
[2017-11-01 07:05] LABS: RED CELL DISTRIBUTION WIDTH 15.8 % (11.5-14.5)
[2017-11-01 07:35] LABS: CALCIUM 6.7 mg/dL (8.5-10.1); PHOSPHOROUS 5.3 mg/dL (2.5-4.9); POTASSIUM SERUM 4.6 mmol/L (3.5-5.1)
[2017-11-01 07:43] LABS: CREATININE SERUM 4.9 mg/dL (0.7-1.3)
[2017-11-01 09:15] VITALS: BP 119/87
[2017-11-01 13:05] VITALS: BP 125/85
[2017-11-01 17:59] VITALS: BP 119/83
[2017-11-01 21:50] VITALS: BP 148/98
[2017-11-02 05:43] VITALS: BP 133/84
[2017-11-02 07:55] LABS: BASOPHIL % 0.5 % (0-2); PLATELET COUNT 175 x10^3mcL (130-400)
[2017-11-02 07:56] LABS: RED CELL DISTRIBUTION WIDTH 15.5 % (11.5-14.5)
[2017-11-02 08:22] LABS: CALCIUM 7.2 mg/dL (8.5-10.1); CARBON DIOXIDE 26.4 mmol/L (21-32); CREATININE SERUM 3.9 mg/dL (0.7-1.3); MAGNESIUM 1.7 mg/dL (1.8-2.4); PHOSPHOROUS 4.8 mg/dL (2.5-4.9); POTASSIUM SERUM 4.1 mmol/L (3.5-5.1)
[2017-11-02 09:45] VITALS: BP 146/94
[2017-11-02 16:54] VITALS: BP 141/93
[2017-11-02 21:31] VITALS: BP 147/91
[2017-11-03 06:13] VITALS: BP 143/93
[2017-11-03 07:02] LABS: BASOPHIL % 0.6 % (0-2); PLATELET COUNT 178 x10^3mcL (130-400)
[2017-11-03 07:08] LABS: RED CELL DISTRIBUTION WIDTH 15.3 % (11.5-14.5)
[2017-11-03 07:13] LABS: CARBON DIOXIDE 27.6 mmol/L (21-32); CREATININE SERUM 3.6 mg/dL (0.7-1.3); MAGNESIUM 1.6 mg/dL (1.8-2.4); PHOSPHOROUS 4.1 mg/dL (2.5-4.9); POTASSIUM SERUM 3.3 mmol/L (3.5-5.1)
[2017-11-03 09:20] VITALS: BP 144/97
[2017-11-03] MEDS ORDERED: CARVEDILOL12.5 M1 PO (16:31)
[2017-11-03] MEDS ORDERED: NOR10 PO (16:36)
[2017-11-03] MEDS ORDERED: NEU100 PO (16:36)
[2017-11-03] MEDS ORDERED: OSCD PO (16:37)
[2017-11-03] MEDS ORDERED: LASIX40 MG PO ×2 (16:38→16:56)
[2017-11-03 17:26] VITALS: BP 125/87
[2017-11-03 18:24] VITALS: BP 125/87
== END 2017-11-03 19:09 | disposition home health service (06) | DRG 673 ==
LOC: ED 15:07 → DU 19:00 → MU 19:00 → DU 20:09 → MU 11-01 10:50
PROVIDERS: Emergency Medicine; Family Medicine; Surgery
PROC: 0HBNXZZ Excision of Left Foot Skin, External Approach (ICD-10-PCS; 2017-10-31)
PROC: B543ZZA Ultrasonography of Right Jugular Veins, Guidance (ICD-10-PCS; 2017-11-01)
PROC: 5A1D70Z Performance of Urinary Filtration, Intermittent, Less than 6 Hours Per Day (ICD-10-PCS; 2017-11-01)
PROC: 5A1D70Z Performance of Urinary Filtration, Intermittent, Less than 6 Hours Per Day (ICD-10-PCS; 2017-11-01)
PROC: 05HM33Z Insertion of Infusion Device into Right Internal Jugular Vein, Percutaneous Approach (ICD-10-PCS; 2017-11-01)
PROC: 0JH63XZ Insertion of Tunneled Vascular Access Device into Chest Subcutaneous Tissue and Fascia, Percutaneous Approach (ICD-10-PCS; principal; 2017-11-01 11:30)
DX: N17.0 Acute kidney failure with tubular necrosis (principal); J69.0 Pneumonitis due to inhalation of food and vomit; E43 Unspecified severe protein-calorie malnutrition; I50.43 Acute on chronic combined systolic (congestive) and diastolic (congestive) heart failure; G93.41 Metabolic encephalopathy; I13.2 Hypertensive heart and chronic kidney disease with heart failure and with stage 5 chronic kidney disease, or end stage renal disease; I16.1 Hypertensive emergency; N18.6 End stage renal disease; E78.5 Hyperlipidemia, unspecified; K21.9 Gastro-esophageal reflux disease without esophagitis; E11.22 Type 2 diabetes mellitus with diabetic chronic kidney disease; N18.9 Chronic kidney disease, unspecified; N40.0 Benign prostatic hyperplasia without lower urinary tract symptoms; E11.51 Type 2 diabetes mellitus with diabetic peripheral angiopathy without gangrene; E83.42 Hypomagnesemia; E02 Subclinical iodine-deficiency hypothyroidism; N43.3 Hydrocele, unspecified; E11.40 Type 2 diabetes mellitus with diabetic neuropathy, unspecified; B35.1 Tinea unguium; Z53.29 Procedure and treatment not carried out because of patient's decision for other reasons; E66.9 Obesity, unspecified; N50.89 Other specified disorders of the male genital organs; E87.6 Hypokalemia; Z89.511 Acquired absence of right leg below knee; Z68.31 Body mass index [BMI] 31.0-31.9, adult; Z91.19 Patient's noncompliance with other medical treatment and regimen; Z79.899 Other long term (current) drug therapy; Z83.3 Family history of diabetes mellitus; Z82.49 Family history of ischemic heart disease and other diseases of the circulatory system
CPT/HCPCS: 82962; 83880; 84439; 86580; 97110-GP; 97116-GP; 97530-GP; A4301; A4719; J0360; J1644; J1815; J1940; J2001; J2543; J2704; J3010; J3475; J3490; J7030; J7620; Q0092

== ENCOUNTER 2017-11-24 09:33 | Inpatient (IN) | payer OTHER ==
[~2017-11-24] VITALS: Ht 167.6 cm; Wt 81.8 kg
[~2017-11-24 09:33] MED LIST changes: +CARVEDILOL12.5 M1 PO; +HYDRALAZINE HCL25 MG PO; +LASIX40 MG PO; +LEVOTHYROXIN0.075 M2 PO; +LOSARTAN POTAS100 M1 PO; +NOR10 PO; +OSCD PO
[2017-11-24 09:38] VITALS: Ht 167.6 cm; Wt 81.8 kg
[2017-11-24 10:20] LABS: BASOPHIL % 0.6 % (0-2); PLATELET COUNT 237 x10^3mcL (130-400)
[2017-11-24 10:35] LABS: CALCIUM 6.7 mg/dL (8.5-10.1); CARBON DIOXIDE 29.8 mmol/L (21-32); CREATININE SERUM 3.9 mg/dL (0.7-1.3); POTASSIUM SERUM 4.3 mmol/L (3.5-5.1)
[2017-11-24 10:36] LABS: RED CELL DISTRIBUTION WIDTH 15.5 % (11.5-14.5)
[2017-11-24 10:40] LABS: BILIRUBIN TOTAL 0.3 mg/dL (0.20-1.00); TOTAL PROTEIN, SERUM 6.9 g/dL (6.4-8.2)
[2017-11-24 14:47] VITALS: BP 129/88
[2017-11-24 15:06] LABS: FREE T4 1.27 ng/dL (0.76-1.46); FREE THYROXINE INDEX 3.1 ug/dL (1.4-4.5); T4(THYROXINE) 8.6 ug/dL (4.7-13.3)
[2017-11-24 15:08] LABS: T3 TOTAL 0.92 ng/mL
[2017-11-24 15:44] LABS: CHOLESTEROL/HDL RATIO 3.2; MAGNESIUM 2.1 mg/dL (1.8-2.4); PHOSPHOROUS 3.9 mg/dL (2.5-4.9)
[2017-11-24 16:30] VITALS: BP 129/88
[2017-11-24 18:07] VITALS: BP 127/87
[2017-11-24 20:56] VITALS: BP 144/97
[2017-11-25 04:59] VITALS: BP 134/88
[2017-11-25 07:03] LABS: CALCIUM 6.7 mg/dL (8.5-10.1); CARBON DIOXIDE 28.7 mmol/L (21-32); POTASSIUM SERUM 4.8 mmol/L (3.5-5.1)
[2017-11-25 07:13] LABS: BASOPHIL % 0.8 % (0-2); PLATELET COUNT 226 x10^3mcL (130-400)
[2017-11-25 08:14] LABS: CREATININE SERUM 4.5 mg/dL (0.7-1.3)
[2017-11-25 09:23] VITALS: BP 134/94
[2017-11-25 18:47] VITALS: BP 146/106
[2017-11-25 21:21] VITALS: BP 148/98
[2017-11-26 05:59] VITALS: BP 144/98
[2017-11-26 06:55] LABS: IRON 42 ug/dL (65-170); TOTAL IRON BINDING CAPACITY 289 ug/dL (250-450)
[2017-11-26 07:00] LABS: PHOSPHOROUS 4.8 mg/dL (2.5-4.9)
[2017-11-26 08:21] LABS: BASOPHIL % 0.6 % (0-2); PLATELET COUNT 207 x10^3mcL (130-400); RED CELL DISTRIBUTION WIDTH 15.4 % (11.5-14.5)
[2017-11-26 08:33] LABS: CARBON DIOXIDE 27.3 mmol/L (21-32)
[2017-11-26 08:39] LABS: CREATININE SERUM 5.1 mg/dL (0.7-1.3)
[2017-11-26 11:23] VITALS: BP 149/105
[2017-11-26 14:43] VITALS: BP 131/70
[2017-11-26 18:39] VITALS: BP 135/92
[2017-11-26] MEDS ORDERED: IBUPROFEN400 MG PO (18:43)
[2017-11-26] MEDS ORDERED: APAP/HYDROCODON1 T13 PO (18:43)
[2017-11-26] MEDS ORDERED: COL100 PO (18:43)
== END 2017-11-26 19:01 | disposition home or self-care (01) | DRG 205 ==
LOC: ED 09:33 → DU 13:13
PROVIDERS: Emergency Medicine; Family Medicine; Internal Medicine Nephrology; Student in an Organized Health Care Education/Training Program
DX: M94.0 Chondrocostal junction syndrome [Tietze] (principal); N18.6 End stage renal disease; N17.0 Acute kidney failure with tubular necrosis; I12.0 Hypertensive chronic kidney disease with stage 5 chronic kidney disease or end stage renal disease; E44.0 Moderate protein-calorie malnutrition; K21.9 Gastro-esophageal reflux disease without esophagitis; I16.0 Hypertensive urgency; E11.65 Type 2 diabetes mellitus with hyperglycemia; E11.51 Type 2 diabetes mellitus with diabetic peripheral angiopathy without gangrene; E11.21 Type 2 diabetes mellitus with diabetic nephropathy; D63.1 Anemia in chronic kidney disease; E03.9 Hypothyroidism, unspecified; Z68.28 Body mass index [BMI] 28.0-28.9, adult; Z99.2 Dependence on renal dialysis; Z89.511 Acquired absence of right leg below knee; Z87.891 Personal history of nicotine dependence
CPT/HCPCS: 82962; 83880; 84439; J1644; J1815; J1940; J7030; J7620; Q0092; Q9967

== ENCOUNTER 2018-02-19 07:52 | Inpatient (IN) | payer OTHER ==
[~2018-02-19] VITALS: Ht 167.6 cm; Wt 71.7 kg
[~2018-02-19 07:52] MED LIST changes: +APAP/HYDROCODON1 T13 PO; +COL100 PO
[2018-02-19 07:57] VITALS: Ht 167.6 cm; Wt 71.7 kg
[2018-02-19 08:46] LABS: BASOPHIL % 0.4 % (0-2); PLATELET COUNT 162 x10^3mcL (130-400)
[2018-02-19 08:47] LABS: RED CELL DISTRIBUTION WIDTH 15.9 % (11.5-14.5)
[2018-02-19 08:52] LABS: CALCIUM 8.6 mg/dL (8.5-10.1); CARBON DIOXIDE 28.2 mmol/L (21-32); CREATININE SERUM 3.9 mg/dL (0.7-1.3); POTASSIUM SERUM 4.9 mmol/L (3.5-5.1)
[2018-02-19 08:56] LABS: ALBUMIN 3.5 g/dL (3.4-5.0); BILIRUBIN TOTAL 0.48 mg/dL (0.20-1.00); TOTAL PROTEIN, SERUM 7.2 g/dL (6.4-8.2)
[2018-02-19 11:01] LABS: MAGNESIUM 2.3 mg/dL (1.8-2.4); PHOSPHOROUS 4.4 mg/dL (2.5-4.9)
[2018-02-19 11:11] LABS: T3 TOTAL 1.06 ng/mL
[2018-02-19 11:48] LABS: FREE T4 1.19 ng/dL (0.76-1.46); FREE THYROXINE INDEX 2.5 ug/dL (1.4-4.5)
[2018-02-19 13:25] VITALS: BP 159/108
[2018-02-19 18:30] VITALS: BP 150/104
[2018-02-19 21:41] VITALS: BP 139/86
[2018-02-19 21:51] VITALS: BP 140/94
[2018-02-20 05:54] VITALS: BP 114/81
[2018-02-20 06:27] LABS: BASOPHIL % 0.6 % (0-2); PLATELET COUNT 161 x10^3mcL (130-400)
[2018-02-20 06:30] LABS: RED CELL DISTRIBUTION WIDTH 15.7 % (11.5-14.5)
[2018-02-20 06:42] LABS: CALCIUM 8.6 mg/dL (8.5-10.1); CARBON DIOXIDE 24.8 mmol/L (21-32); MAGNESIUM 2.1 mg/dL (1.8-2.4); PHOSPHOROUS 5.4 mg/dL (2.5-4.9); POTASSIUM SERUM 4.5 mmol/L (3.5-5.1)
[2018-02-20 06:45] LABS: CREATININE SERUM 4.3 mg/dL (0.7-1.3)
[2018-02-20 09:12] VITALS: BP 118/82
[2018-02-20 11:15] LABS: microscopic required? YES; urine erythrocyte TRACE (NEGATIVE)
[2018-02-20 12:35] VITALS: BP 92/65
[2018-02-20 17:53] VITALS: BP 85/62
[2018-02-20 20:41] VITALS: BP 90/63
[2018-02-20 20:51] VITALS: BP 95/66
[2018-02-21 05:43] VITALS: BP 114/77
[2018-02-21 06:13] LABS: BASOPHIL % 0.8 % (0-2); PLATELET COUNT 163 x10^3mcL (130-400)
[2018-02-21 06:41] LABS: RED CELL DISTRIBUTION WIDTH 15.9 % (11.5-14.5)
[2018-02-21 06:50] LABS: CALCIUM 7.9 mg/dL (8.5-10.1); CARBON DIOXIDE 26.8 mmol/L (21-32); POTASSIUM SERUM 5.5 mmol/L (3.5-5.1)
[2018-02-21 07:22] LABS: CREATININE SERUM 4.8 mg/dL (0.7-1.3)
[2018-02-21 08:38] VITALS: BP 117/78
[2018-02-21] MEDS ORDERED: CARVEDILOL12.5 M1 PO (11:55)
[2018-02-21] MEDS ORDERED: NOR10 PO (11:55)
[2018-02-21] MEDS ORDERED: COZ50 PO (11:55)
[2018-02-21 12:12] VITALS: BP 117/78
[2018-02-21] MEDS ORDERED: BACO TOP (12:28)
[2018-02-21] MEDS ORDERED: APLICARE ANTIS118 M3 TOP (12:28)
[2018-02-21 13:00] VITALS: BP 113/68
== END 2018-02-21 13:44 | disposition home or self-care (01) | DRG 314 ==
LOC: ED 07:52 → DU 08:49
PROVIDERS: Emergency Medicine; Internal Medicine; Internal Medicine Nephrology
DX: T82.42XA Displacement of vascular dialysis catheter, initial encounter (principal); N18.6 End stage renal disease; I50.43 Acute on chronic combined systolic (congestive) and diastolic (congestive) heart failure; I13.2 Hypertensive heart and chronic kidney disease with heart failure and with stage 5 chronic kidney disease, or end stage renal disease; E11.22 Type 2 diabetes mellitus with diabetic chronic kidney disease; E11.65 Type 2 diabetes mellitus with hyperglycemia; E87.5 Hyperkalemia; D63.1 Anemia in chronic kidney disease; K21.9 Gastro-esophageal reflux disease without esophagitis; N40.0 Benign prostatic hyperplasia without lower urinary tract symptoms; E78.5 Hyperlipidemia, unspecified; Z99.2 Dependence on renal dialysis; Z68.26 Body mass index [BMI] 26.0-26.9, adult; Z89.511 Acquired absence of right leg below knee
CPT/HCPCS: 82962; 83880; 84439; J3490; Q0092

== ENCOUNTER 2018-11-06 18:33 | Emergency (ER) | payer OTHER ==
[~2018-11-06] VITALS: Ht 165.1 cm; Wt 78.9 kg
[~2018-11-06 18:33] MED LIST changes: +APLICARE ANTIS118 M3 TOP
[2018-11-06 18:42] VITALS: Ht 165.1 cm; Wt 78.9 kg
[2018-11-06 19:34] LABS: BASOPHIL % 0.3 % (0-2); PLATELET COUNT 142 x10^3mcL (130-400); RED CELL DISTRIBUTION WIDTH 13.9 % (11.5-14.5)
[2018-11-06 19:43] LABS: CALCIUM 8.7 mg/dL (8.5-10.1); CARBON DIOXIDE 36.5 mmol/L (21-32); CREATININE SERUM 2.8 mg/dL (0.7-1.3); POTASSIUM SERUM 4.2 mmol/L (3.5-5.1)
[2018-11-06 19:48] LABS: ALBUMIN 3.9 g/dL (3.4-5.0); BILIRUBIN TOTAL 0.9 mg/dL (0.20-1.00); TOTAL PROTEIN, SERUM 7.7 g/dL (6.4-8.2)
[2018-11-06 22:41] LABS: C REACTIVE PROTEIN 0.7 mg/dL (<=0.9)
[2018-11-06 22:44] LABS: CHOLESTEROL/HDL RATIO 3.4
[2018-11-07 00:22] VITALS: BP 165/107
== END 2018-11-07 00:06 | disposition short-term general hospital (02) ==
LOC: ED 18:33
PROVIDERS: Emergency Medicine
DX: H52.51 Internal ophthalmoplegia (complete) (total) (principal); I12.0 Hypertensive chronic kidney disease with stage 5 chronic kidney disease or end stage renal disease; E11.22 Type 2 diabetes mellitus with diabetic chronic kidney disease; N18.6 End stage renal disease; Z99.2 Dependence on renal dialysis; Z89.511 Acquired absence of right leg below knee
CPT/HCPCS: J2405; J3490

== ENCOUNTER 2019-10-28 20:38 | Emergency (ER) | payer OTHER ==
[~2019-10-28] VITALS: Ht 165.1 cm; Wt 78.9 kg
[2019-10-28 20:44] VITALS: Ht 165.1 cm; Wt 78.9 kg
[2019-10-28 23:22] VITALS: BP 146/78
== END 2019-10-28 23:11 | disposition home or self-care (01) ==
LOC: ED 20:38
DX: L03.115 Cellulitis of right lower limb (principal); I10 Essential (primary) hypertension; E11.9 Type 2 diabetes mellitus without complications; E78.5 Hyperlipidemia, unspecified; K21.9 Gastro-esophageal reflux disease without esophagitis
CPT/HCPCS: 82962; J0696; Q0092

== ENCOUNTER 2019-10-30 18:56 | Emergency (ER) | payer OTHER ==
[~2019-10-30] VITALS: Ht 167.6 cm; Wt 81.6 kg
[2019-10-30 19:15] VITALS: Ht 167.6 cm; Wt 81.6 kg
[2019-10-31 00:10] VITALS: BP 141/97
== END 2019-10-31 00:10 | disposition home or self-care (01) ==
LOC: ED 18:56
DX: L03.115 Cellulitis of right lower limb (principal); I10 Essential (primary) hypertension; E11.9 Type 2 diabetes mellitus without complications; E78.5 Hyperlipidemia, unspecified; K21.9 Gastro-esophageal reflux disease without esophagitis; Z98.890 Other specified postprocedural states
CPT/HCPCS: J1885; Q0092

== ENCOUNTER 2020-08-15 14:07 | Emergency (ER) | payer OTHER ==
[~2020-08-15] VITALS: Ht 165.1 cm; Wt 78.9 kg
[2020-08-15 14:12] VITALS: Ht 165.1 cm; Wt 78.9 kg
[2020-08-15 17:00] VITALS: BP 111/71
== END 2020-08-15 17:00 | disposition home or self-care (01) ==
LOC: ED 14:07
DX: S22.42XA Multiple fractures of ribs, left side, initial encounter for closed fracture (principal); K21.9 Gastro-esophageal reflux disease without esophagitis; E11.22 Type 2 diabetes mellitus with diabetic chronic kidney disease; I12.9 Hypertensive chronic kidney disease with stage 1 through stage 4 chronic kidney disease, or unspecified chronic kidney disease; N18.9 Chronic kidney disease, unspecified; E78.5 Hyperlipidemia, unspecified; Z99.2 Dependence on renal dialysis; Z89.511 Acquired absence of right leg below knee; W18.39XA Other fall on same level, initial encounter; Y93.89 Activity, other specified; Y92.89 Other specified places as the place of occurrence of the external cause; Y99.8 Other external cause status